=== PATIENT | male | born 1930 | race Caucasian/White ===

== ENCOUNTER 2017-10-08 20:31 | Emergency (ER) | payer MEDICARE ==
--- NOTE | 2017-10-08 20:40 | Emergency Department Record ---
History of Present Illness - General Chief complaint: Weakness Stated complaint: POSS STROKE Time Seen by Provider: 10/08/17 20:34 Source: Patient, Family Mode of Arrival: Wheelchair Limitations: No limitations - History of Present Illness Initial comments: 86 yo male presents with weakness of the left arm and left leg that started about 30 minutes ago at 8pm. He was watching TV. He went to get up and felt weak in the arm, it seemed to give out and have trouble buttoning his shirt. He states his left leg was weak initially then improved. No headache. No vision changes, no speech changes. No nausea or vomiting. No anticoagulants. No history of stroke. He does take a baby aspirin daily. MD Complaint: Focal weakness -: Minutes(s) (30) Location: [place] Severity: Mild Quality: Other Consistency: Constant, Other (Improving) Improves with: None Worsens with: None Context: Other Associated Symptoms: Denies other symptoms - [place] Coma Scale Eye Response: (4) Open spontaneously Motor Response: (6) Obeys commands Verbal Response: (5) Oriented [place] Total: 15 - Related Data Home Medications Medication Instructions Recorded Confirmed Last Taken Aspirin [Aspirin EC] 81 mg PO DAILY 10/08/17 10/08/17 Unknown Atorvastatin Calcium [Lipitor] 10 mg PO DAILY 10/08/17 10/08/17 Unknown Calcium Carbonate [Calcium] 600 mg PO DAILY 10/08/17 10/08/17 Unknown Cholecalciferol (Vitamin D3) 2,000 unit PO DAILY 10/08/17 10/08/17 Unknown [Vitamin D3] Dutasteride [Avodart] 0.5 mg PO ASDIR 10/08/17 10/08/17 Unknown Mv-Mins/Folic/Lycopene/Ginkgo [One 1 each PO DAILY 10/08/17 10/08/17 Unknown Daily Men's 50+ Tablet] Allergies Allergy/AdvReac Type Severity Reaction Status Date / Time No Known Drug Intolerances Allergy Unknown Unverified 06/02/13 10:03 Allergies: Allergy Unknown Uncoded 06/02/13 10:03 Review of Systems Constitutional: Denies: Chills, Fever, Malaise, Weakness Eyes: Denies: Eye discharge ENT: Denies: Congestion, Throat pain Respiratory: Denies: Cough Cardiovascular: Denies: Chest pain, Edema, Palpitations, Syncope Endocrine: Denies: Fatigue Gastrointestinal: Denies: Abdominal pain, Diarrhea, Nausea, Vomiting Genitourinary: Denies: Dysuria, Frequency, Hematuria Musculoskeletal: Denies: Arthralgia, Back pain Skin: Denies: Bruising, Change in color, Rash Neurological: Reports: Abnormal gait, Weakness. Denies: Confusion, Headache, Numbness, Tingling, Tremors, Vertigo Psychiatric: Denies: Anxiety Hematological/Lymphatic: Denies: Blood Clots, Easy bleeding, Easy bruising, Swollen glands Physical Exam - General General Appearance: Alert, Oriented x3, Cooperative, No acute distress Limitations: No limitations - Head Head exam: Normal inspection - Eye Eye exam: Normal appearance, PERRL. negative: Conjunctival injection, Scleral icterus - ENT ENT exam: Normal exam, Mucous membranes moist Ear exam: Normal external inspection Nasal Exam: Normal inspection Mouth exam: Normal external inspection - Neck Neck exam: Normal inspection, Full ROM. negative: Tenderness - Respiratory Respiratory exam: Normal lung sounds bilaterally. negative: Respiratory distress - Cardiovascular Cardiovascular Exam: Regular rate, Normal rhythm, Normal heart sounds Peripheral Pulses: 2+: Radial (R), Radial (L) - GI/Abdominal GI/Abdominal exam: Soft. negative: Tenderness - Rectal Rectal exam: Deferred - exam: Deferred - Extremities Extremities exam: Normal inspection, Full ROM, Normal capillary refill. negative: Calf tenderness, Joint swelling, Pedal edema, Tenderness - Back Back exam: Denies: CVA tenderness (R), CVA tenderness (L) - Neurological Neurological exam: Alert, CN II-XII intact, Motor sensory deficit, Oriented X3, Other (Mild left sided difficulty with finger to nose, mild give with biceps, slight PND on the left). negative: Altered, Reflexes normal - Psychiatric Psychiatric exam: Normal affect, Normal mood - Skin Skin exam: Dry, Intact, Normal color, Warm Stroke Assessment - NIH Stroke Scale 1a. Level of Consciousness: (0) Alert 1b. LOC Questions: (0) Answers Correctly 1c. LOC Commands: (0) Performs Tasks Correctly 2. Best Gaze: (0) Normal 3. Visual: (0) No Visual Loss 4. Facial Palsy: (0) Normal Symmetrical Movement 5a. Motor Arm Left: (1) Drift 5b. Motor Arm Right: (0) No Drift 6a. Motor Leg Left: (0) No Drift 6b. Motor Leg Right: (0) No Drift 7. Limb Ataxia: (1) Present 1 Limb 8. Sensory: (0) Normal 9. Best Language: (0) No Aphasia 10. Dysarthria: (0) Normal 11. Extinction/Inattention: (0) No Abnormality NIH Stoke Scale Total: 2 Course - Reevaluation(s) Reevaluation #1: NIH of 2 EKG 2031 NSR Rate is 66 Intervals QT461, RBBB ST CW RBBB 10/08/17 20:39 10/08/17 20:44 confirms onset time and that he walked without assist at home 10/08/17 20:53 CBC no changes CR is 2.1 10/08/17 20:54 Radiology Notified regarding stat read 10/08/17 21:00 HCT R Basal ganglia hemorrhage approximately 2 x 1 x 2.5cm 10/08/17 21:[address] Whittaker of Neurology recommended Critical Care Admit. 10/08/17 21:06 INR is 1.0 10/08/17 21:07 Plt is 254 I RAFAEL Cornejo of Critial Care I RAFAEL Connolly of Neuro Surgery 10/09/17 01:08 Medical Decision Making - Lab Data Result diagrams: 10/08/17 20:36 10/08/17 20:36 Disposition Disposition: Transfer Clinical Impression: Stroke Qualifiers: CVA mechanism: unspecified Qualified Code(s): I63.9 - Cerebral infarction, unspecified Disposition: Home, Self-Care Transfer To: [facility] Reason For Transfer: Basal Ganglia hemorrhage Accepting Physician: Clemente Time Discussed w/Accepting Physician: 21:02 Condition: (2) Stable Forms: Patient Portal Access Time of Disposition: 21:10 Quality - Quality Measures Quality Measures: N/A - Blood Pressure Screening Does Patient Have Any of the Following: No Blood Pressure Classification: Hypertensive Reading Systolic Measurement: 155 Diastolic Measurement: 65 Screening for High Blood Pressure: < Pre-Hypertensive BP, F/U Documented > [ [id number]] Pre-Hypertensive Follow-up Interventions: Referral to alternative/primary care provider.
[2017-10-08 20:42] LABS: BASO % 0.4 % (0-6); EOS % 2.7 % (0-6); GRAN % 66.5 % (47-80); HEMATOCRIT 41.2 % (42.0-52.0); HEMOGLOBIN 13.7 gm/dl (14.0-18.0); MEAN CORPUSCULAR HEMOGLOBIN 29.9 pg (27-33); MEAN CORPUSCULAR HGB CONC 33.3 g/dl (32-36); MEAN PLATELET VOLUME 9.3 fl (7.4-10.4); MONO % 8.4 % (0-9); PLATELET COUNT 254 K/uL (130-400); RED BLOOD COUNT 4.58 M/uL (4.40-5.70); WHITE BLOOD COUNT W/O DIFF 9.2 K/uL (4.2-12.2)
[2017-10-08 20:52] LABS: BLOOD UREA NITROGEN 35 mg/dL (8-23)
[2017-10-08 20:53] LABS: CREATININE 2.1 mg/dL (0.7-1.2); EST GLOMERULAR FILTRATION RATE 32 mL/min; PARTIAL THROMBOPLASTIN TIME 26.2 SECONDS (24.5-39.1); PROTHROMBIN TIME (PATIENT) 9.6 SECONDS (9.5-12.1); TOTAL PROTEIN 6.8 g/dL (6.6-8.7)
[2017-10-08 20:55] LABS: GLUCOSE,RANDOM 121 mg/dL (74-109)
[2017-10-08 20:58] LABS: ALB/GLOB RATIO 1.8 (1.1-1.8); ALBUMIN 4.4 g/dL (4.0-5.0); ALKALINE PHOSPHATASE 105 U/L (40-129); ALT/SGPT 17 U/L (<41); AST/SGOT 17 U/L (10.0-50.0)
--- NOTE | 2017-10-11 08:11 | CT SCAN REPORT ---
EXAM: NONCONTRAST CT OF THE BRAIN HISTORY: SUDDEN ONSET LEFT ARM NUMBNESS AND FACIAL DROOP. TECHNIQUE: Noncontrast CT of the brain was obtained. Comparison: None. FINDINGS: Focal intraparenchymal hyperdensity within the right basal ganglia, with superior extension towards the lott radiata as well as surrounding parenchymal edema, compatible with acute intraparenchymal hemorrhage. The focus of hemorrhage measures approximately 2.0 x 1.0 x 2.5 cm (AP x TV x CC). No appreciable midline shift or other significant mass effect. No additional foci of hemorrhage are identified. Mild diffuse prominence of the ventricles and cortical sulci compatible with age related cerebral volume loss. Confluent periventricular and subcortical hypoattenuating white matter likely chronic small vessel ischemic change. No displaced calvarial fracture is detected. The visualized paranasal sinuses and mastoid air cells are clear. IMPRESSION: 1. ACUTE RIGHT BASAL GANGLIA INTRAPARENCHYMAL HEMORRHAGE. NO SIGNIFICANT ASSOCIATED MASS EFFECT IS APPRECIATED. FINDING DISCUSSED WITH ORDERING PROVIDER DR. CHRISTINA AT TIME OF INTERPRETATION. 2. CHRONIC APPEARING FINDINGS INCLUDE DIFFUSE CEREBRAL VOLUME LOSS AND LIKELY CHRONIC SMALL VESSEL ISCHEMIC WHITE MATTER CHANGES. JOB NUMBER: [id number] [facility]
== END 2017-10-08 21:20 | disposition home or self-care (01) ==
LOC: ER 20:31
DX: I61.0 Nontraumatic intracerebral hemorrhage in hemisphere, subcortical (principal); G81.94 Hemiplegia, unspecified affecting left nondominant side; Z85.528 Personal history of other malignant neoplasm of kidney
CPT/HCPCS: 70450; 80053; 84484; 85025; 85610; 85730; 93005; 93010; 99285